=== PATIENT | male | born 1950 | race Caucasian/White ===

== ENCOUNTER 2019-03-16 14:04 | Outpatient (REF) | payer MEDICARE, BC, SELFPAY ==
[2019-03-16 21:10] LABS: ALT 29 U/L (12-78); AST 27 U/L (15-37); Albumin 3.7 g/dL (3.4-5.0); Alkaline Phosphatase 47 U/L (46-116); Anion Gap 7.9 mmol/L (3-11); BUN 19 mg/dL (7-18); Bilirubin, Total 1.3 mg/dL (0.2-1.0); CO2 30.1 mmol/L (21.0-32.0); CREATININE 0.97 mg/dL (0.70-1.30); Calcium 9.3 mg/dL (8.5-10.1); Chloride 104 mmol/L (98-107); Glucose 99 mg/dL (70-100); Potassium 4.1 mmol/L (3.5-5.1); Sodium 142 mmol/L (136-145); Total Protein 6.8 g/dL (6.4-8.2)
== END 2019-03-16 14:24 ==
LOC: NCHCN 14:04
PROVIDERS: PCP Internal Medicine; Visit Provider Nurse Practitioner Family
DX: F52.21 Male erectile disorder (principal); I86.8 Varicose veins of other specified sites; F17.210 Nicotine dependence, cigarettes, uncomplicated; E78.5 Hyperlipidemia, unspecified; R03.0 Elevated blood-pressure reading, without diagnosis of hypertension
CPT/HCPCS: 80053

== ENCOUNTER 2019-04-19 10:30 | Outpatient (REF) | payer MEDICARE, BC, SELFPAY | END 2019-04-19 10:50 | LOC: NCHCN 10:30 | PROVIDERS: PCP Internal Medicine; Visit Provider Nurse Practitioner Family | DX: R73.09 Other abnormal glucose (principal) | CPT/HCPCS: 83036 ==

== ENCOUNTER → 2019-05-24 09:22 | Outpatient (BNVA) | payer MEDICARE, BC, SELFPAY | PROVIDERS: PCP Nurse Practitioner Family; Referring Provider Nurse Practitioner Family; Visit Provider Physical Therapy Assistant | DX: Z12.11 Encounter for screening for malignant neoplasm of colon (principal); Z86.010 Personal history of colon polyps ==

== ENCOUNTER 2019-06-11 09:14 | Day surgery (SDC) | payer MEDICARE, BC, SELFPAY ==
--- NOTE | 2019-06-11 06:45 | W.COLOREPORT ---
Date of service: 06/11/19 Time of Service: : Colonoscopy Report Date of procedure: 06/11/19 Pre-op diagnosis general: Hx of polyps Post-op diagnosis procedure note: other (polyps and internal hemorrhoids) Procedure: Colonoscopy with polypectomy Surgeon: Oksana Thomas Anesthesia proc note operative: other (General/ ASA 2/Namrata Reddy CRNA) Estimated blood loss (mL): 5 Pathology: other (Ascending polyp x2, Transverse polyp, descending colon polyp) Complications: None Disposition: same day Indications: Mr. Akhtar is a pleasant 69 year old male seen in the office for a colonoscopy. His last colonoscopy was in 2008 and was remarkable for a sessile serrated adenoma. He was supposed to come back in 3 years. Risks, benefits and complications have been reviewed. Complications include but are not limited to bleeding, pain, perforation, missed small lesion/polyp, sore throat, aspiration and adverse reaction to the medications. Questions were entertained and answered to their satisfaction and they wished to proceed. No guarantees were given or implied. Prep: Miralax/Dulcolax Procedure Start Time: :28 Procedure End Time: 11:05 Retraction Time: 22 minutes Findings: multiple small polyps Procedure Description: After informed consent was obtained the patient was taken to the procedure room and placed in a left decubitous position. Monitors were applied and a time out was done. The patients name, date of , procedure, allergies to medications and metal in their body was reviewed. The patient was then sedated. Once sedated and comfortable a rectal exam was done. External exam was normal. Internal exam revealed a normal sphincter tone and no palpable masses. The prostate felt smooth. The scope was then introduced and retro-flexed. Grade 1 internal hemorrhoids were identified. There were no masses or polyps on retro-flexion. The scope was then advanced to the cecum with some difficulty. The TI and appendiceal orifice were identified. The prep was adequate. The scope was then slowly retracted over 22 minutes back into the rectum. Polyps were removed with cold forceps in the ascending colon x2, Transverse colon and descending colon. The scope was removed and the patient was woken up and taken back to Same day surgery in stable condition. The patient tolerated the procedure well and there were no immediate complications. Follow up: The patient should follow up in 3-5 years unless they develop changes in bowel habits or other new gastrointestinal complaints.
--- NOTE | 2019-06-11 06:47 | W.PM.DSUDISC ---
Discharge Plan Disposition Patient Disposition: HOME Condition: Good Discharge Details Reason For Visit: Colonoscopy Attending Provider: Oksana Thomas Primary Care Provider: Maura Julio Home Meds and New Rx's Prescriptions: Continued cod liver oil Oil 5 ml PO DAILY RF: 0 aspirin [Adult Low Dose Aspirin] 81 mg tablet,delayed release (DR/EC) 81 mg PO DAILY RF: 0 atorvastatin 20 mg tablet 20 mg PO DAILY RF: 0 multivitamin,tx-minerals Tablet 1 tab PO DAILY RF: 0 garlic 1,000 mg capsule 1,000 mg PO QPC RF: 0 Discontinued polyethylene glycol 3350 17 gram/dose powder 238 g PO ONCE Qty: 238 RF: 0 bisacodyl [Dulcolax (bisacodyl)] 5 mg tablet,delayed release (DR/EC) 5 mg PO ONCE Qty: 4 RF: 0 Discharge Instructions Instructions: Colonoscopy (DC), Colorectal Polyps (DC) Additional Instructions: Findings: colorectal polyps Small internal hemorrhoids Follow up: 3-5 years Please call if you develop: fevers >101.5 Nausea or Vomiting Abdominal pain that is not transient DAY SURGERY UNIT POST ENDOSCOPY INSTRUCTIONS 1. Because there will be medication in your system for the next 24 hours, you may feel a little sleepy. Your coordination will be affected. Therefore: a. Do not drive or operate dangerous equipment for 24 hours. b. Do not drink alcohol beverages for 24 hours (not even beer). c. Plan to go home and rest for the day. 2. Generally there are no restrictions on your activity after a day or so has gone by, but you may feel a bit fatigued for a few days. 3 After you arrive home you may have a light meal and return to a normal diet as you can tolerate it without feeling sick to your stomach. 4. After surgery, you may feel pain or discomfort. This should be only transient, but if it persists please contact your doctor. 5. If there are any questions regarding the findings of your procedure, please feel free to contact your doctor. 6. If you are unable to contact your doctor with a problem, contact the hospital at [phone]. 7. Continue all your regular medications unless directed otherwise. I understand the above instructions and have no questions. Signature of Patient or Responsible Adult Escort Date/Time Name of Responsible Adult Escort Signature of Nurse Date/Time Activity:: Activity as Tolerated Diet:: As Tolerated Discharge Orders Discharge Orders: Discharge Order (Routine); Ordered 06/11/19 Ordered By: Oksana Thomas DS: Diagnosis Discharge Diagnosis (1) History of colonoscopy: Status: Chronic (2) Colorectal polyp detected on colonoscopy: Status: Acute
[2019-06-11 09:23] VITALS: BP 145/92; PULSE 69; RESP 16; TEMP 36.5; O2SAT 98
[2019-06-11] MEDS: Lactated Ringers 1,000 ML 80 ML IV (09:54)
--- NOTE | 2019-06-11 10:44 | BOWEL_PTH ---
PATIENT: Imer Akhtar LOC: [facility] U#:[id number] AGE/SX: 69/M ROOM: RE06/11/[address]: Oksana Thomas MD : 1950 BED: DIS: 06/11/2019 SPEC #: [id number] RECD: 06/11/19 12:56 STATUS: JESSICA REQ #: [id number] DOMONIQUE: 06/11/19 10:[address]: Oksana Thomas DEPT: Surgical Specimen RECD BY: Shabnam Drake ENTERED: 06/11/19 12:58 SP TYPE: Bowel OTHR DR: Maura Julio Tissues: 1 - BIOPSY BOWEL 2 - BIOPSY BOWEL 3 - BIOPSY BOWEL Procedures: GROSS AND MICRO LEVEL 4 Comments: [id number]
[2019-06-11 11:32] VITALS: BP 128/89; PULSE 69; RESP 16; TEMP 36.4; O2SAT 100
== END 2019-06-11 11:55 | disposition home or self-care (01) ==
LOC: SUR 09:15
PROVIDERS: PCP Nurse Practitioner Family; Visit Provider Surgery
PROC: 0DJD8ZZ Inspection of Lower Intestinal Tract, Via Natural or Artificial Opening Endoscopic (ICD-10-PCS; CPT 45378; principal; 2019-06-11 10:30)
DX: Z12.11 Encounter for screening for malignant neoplasm of colon (principal); D12.2 Benign neoplasm of ascending colon; D12.4 Benign neoplasm of descending colon; K63.5 Polyp of colon; K64.0 First degree hemorrhoids; Z86.010 Personal history of colon polyps
CPT/HCPCS: 45380; 88305

== ENCOUNTER 2020-01-24 16:41 | Outpatient (REF) | payer MEDICARE, BC, SELFPAY ==
[2020-01-24 20:30] LABS: ALT 33 U/L (16-63); AST 34 U/L (15-37); Albumin 3.6 g/dL (3.4-5.0); Alkaline Phosphatase 49 U/L (46-116); Anion Gap 4.6 mmol/L (3-11); BUN 20 mg/dL (7-18); Bilirubin, Total 0.9 mg/dL (0.2-1.0); CO2 30.4 mmol/L (21.0-32.0); CREATININE 0.95 mg/dL (0.70-1.30); Calcium 8.8 mg/dL (8.5-10.1); Chloride 105 mmol/L (98-107); Glucose 109 mg/dL (74-106); Sodium 140 mmol/L (136-145); Total Protein 6.5 g/dL (6.4-8.2)
[2020-01-24 20:33] LABS: Hemoglobin A1C 5.8 % (3.8-5.6)
[2020-01-26 11:02] LABS: HIV-1/2 Ag & Ab Screen Negative (Negative)
[2020-01-28 10:58] LABS: Hepatitis C Ab w Rflx HCV PCR Negative (Negative)
[2020-01-28 11:06] LABS: PSA, Screening 1.1 ng/mL (0.0-4.5)
== END 2020-01-24 17:01 ==
LOC: NCHCN 16:41
PROVIDERS: PCP Nurse Practitioner Family; Visit Provider Nurse Practitioner Family
DX: E78.5 Hyperlipidemia, unspecified (principal); R73.09 Other abnormal glucose; F52.21 Male erectile disorder; I86.8 Varicose veins of other specified sites; I10 Essential (primary) hypertension; J30.2 Other seasonal allergic rhinitis; Z12.5 Encounter for screening for malignant neoplasm of prostate; Z11.4 Encounter for screening for human immunodeficiency virus [HIV]; Z11.59 Encounter for screening for other viral diseases
CPT/HCPCS: 80053; 84153; 86803; 87389; 83036

== ENCOUNTER 2020-11-13 01:10 | Outpatient (REF) | payer MEDICARE, SELFPAY ==
[2020-11-13 13:43] LABS: ALT 28 U/L (16-63); AST 28 U/L (15-37); Albumin 3.5 g/dL (3.4-5.0); Alkaline Phosphatase 50 U/L (46-116); Anion Gap 5.4 mmol/L (3-11); BUN 19 mg/dL (7-18); CO2 31.6 mmol/L (21.0-32.0); CREATININE 0.8 mg/dL (0.70-1.30); Calcium 9.2 mg/dL (8.5-10.1); Chloride 108 mmol/L (98-107); Glucose 92 mg/dL (74-106); Potassium 4.5 mmol/L (3.5-5.1); Sodium 145 mmol/L (136-145); Total Protein 6.8 g/dL (6.4-8.2)
== END 2020-11-13 01:11 | disposition home or self-care (01) ==
LOC: NCHCN 01:10
PROVIDERS: PCP Nurse Practitioner Family; Visit Provider Nurse Practitioner Family
DX: E78.5 Hyperlipidemia, unspecified (principal); R73.03 Prediabetes; F17.210 Nicotine dependence, cigarettes, uncomplicated
CPT/HCPCS: 80053

== ENCOUNTER 2021-08-03 13:49 | Outpatient (CLI) | payer MEDICARE, SELFPAY ==
--- NOTE | 2021-08-03 13:45 | DI.RAD_ITS ---
Exam(s) XR HAND LT COMPLETE EXAM: XR HAND LT COMPLETE CLINICAL HISTORY: pain in hand, mainly thumb. TECHNIQUE: 2D digital imaging was performed of the left hand. Three views were obtained. AP, later al and oblique views were obtained. COMPARISON: No exams were available for comparison FINDINGS: BONES: No acute fracture is present. No bony destructive lesion is seen. JOINTS: No dislocation present. There are mild degenerative changes seen in the hand with joint space narrowing and periarticular spurring particularly in the interphalangeal joints. SOFT TISSUE: Normal. IMPRESSION: Mild degenerative changes of the left hand. DATA REPOSITORY: RADIATION DOSE DELIVERED:
== END 2021-08-03 13:50 | disposition home or self-care (01) ==
LOC: DIORS 13:49
PROVIDERS: PCP Nurse Practitioner Family; Referring Provider Nurse Practitioner Family; Visit Provider Student in an Organized Health Care Education/Training Program
DX: M79.642 Pain in left hand (principal); M18.32 Unilateral post-traumatic osteoarthritis of first carpometacarpal joint, left hand; S63.112A Subluxation of metacarpophalangeal joint of left thumb, initial encounter; X58.XXXA Exposure to other specified factors, initial encounter
CPT/HCPCS: 99214; 73130

== ENCOUNTER 2021-12-07 11:19 | Outpatient (REF) | payer MEDICARE, SELFPAY ==
[2021-12-07 16:22] LABS: ALT 35 U/L (16-63); AST 30 U/L (15-37); Albumin 3.5 g/dL (3.4-5.0); Alkaline Phosphatase 49 U/L (46-116); Anion Gap 5.1 mmol/L (3-11); BUN 20 mg/dL (7-18); CO2 29.9 mmol/L (21.0-32.0); CREATININE 1.1 mg/dL (0.70-1.30); Calcium 8.7 mg/dL (8.5-10.1); Chloride 107 mmol/L (98-107); Glucose 104 mg/dL (74-106); Potassium 4.6 mmol/L (3.5-5.1); Sodium 142 mmol/L (136-145); TSH (W/Ref FT4) 2.61 uIU/mL (0.36-3.74); Total Protein 6.6 g/dL (6.4-8.2)
[2021-12-07 16:24] LABS: Hemoglobin A1C 5.9 % (<5.7)
[2021-12-07 22:08] LABS: PSA, Screening 1.6 ng/mL (<=4.5)
== END 2021-12-07 11:20 | disposition home or self-care (01) ==
LOC: NCHCN 11:19
PROVIDERS: PCP Nurse Practitioner Family; Visit Provider Nurse Practitioner Family
DX: I10 Essential (primary) hypertension (principal); R73.03 Prediabetes; E78.5 Hyperlipidemia, unspecified; Z12.5 Encounter for screening for malignant neoplasm of prostate
CPT/HCPCS: 80053; 84153; 83036; 84443

== ENCOUNTER 2022-05-31 17:08 | Outpatient (REF) | payer MEDICARE, SELFPAY ==
--- NOTE | 2022-05-31 15:15 | SKI_PTH ---
PATIENT: Imer Akhtar LOC: [facility]#:[id number] AGE/SX: 72/M ROOM: RE05/31/[address]: Avelino Hernandez : 1950 BED: DIS: 05/31/2022 SPEC #: [id number] RECD: 05/31/22 18:01 STATUS: JESSICA REQ #: [id number] DOMONIQUE: 05/31/22 15:[address]: Avelino Hernandez DEPT: Surgical Specimen RECD BY: Shabnam Drake ENTERED: 05/31/22 18:01 SP TYPE: SKI OTHR DR: Maura Julio Tissues: 1 - SKIN BIOPSY(SHAVE/PUNCH) Procedures: IMMUNOPEROXIDASE STAIN SKIN LEVEL 4 Comments: [id number]
== END 2022-05-31 17:09 | disposition home or self-care (01) ==
LOC: NCHCN 17:08
PROVIDERS: PCP Nurse Practitioner Family; Visit Provider Family Medicine
DX: C43.62 Malignant melanoma of left upper limb, including shoulder (principal)
CPT/HCPCS: 88305; 88361

== ENCOUNTER → 2022-06-10 10:00 | Outpatient (BNVA) | payer MEDICARE, SELFPAY | PROVIDERS: PCP Nurse Practitioner Family; Referring Provider Nurse Practitioner Family; Visit Provider Nurse Practitioner Adult Health | DX: R41.3 Other amnesia (principal); R47.89 Other speech disturbances; I10 Essential (primary) hypertension | CPT/HCPCS: 99204; 99214 ==

== ENCOUNTER 2022-06-22 14:48 | Outpatient (REF) | payer MEDICARE, SELFPAY ==
--- NOTE | 2022-06-22 11:30 | SKI_PTH ---
PATIENT: Imer Akhtar LOC: [facility]#:[id number] AGE/SX: 72/M ROOM: RE06/22/[address]: Avelino Hernandez : 1950 BED: DIS: 06/22/2022 SPEC #: [id number] RECD: 06/22/22 17:09 STATUS: JESSICA REQ #: [id number] DOMONIQUE: 06/22/22 11:[address]: Avelino Hernandez DEPT: Surgical Specimen RECD BY: Shabnam Drake ENTERED: 06/22/22 17:09 SP TYPE: SARAHI CHOWDARY DR: Maura Julio Tissues: 1 - SKIN BIOPSY(SHAVE/PUNCH) Procedures: IMMUNOPEROXIDASE STAIN SKIN LEVEL 4 Comments: [id number]
[2022-06-22 16:29] LABS: Vitamin B12 803 pg/mL (193-986)
== END 2022-06-22 14:49 | disposition home or self-care (01) ==
LOC: NCHCN 14:48
PROVIDERS: PCP Nurse Practitioner Family; Visit Provider Family Medicine
DX: C43.62 Malignant melanoma of left upper limb, including shoulder (principal); R41.3 Other amnesia
CPT/HCPCS: 82607; 88305; 88361

== ENCOUNTER → 2022-07-02 00:35 | Outpatient (CLI) | payer MEDICARE, SELFPAY ==
--- NOTE | 2022-07-02 07:15 | DI.MRI_ITS ---
Exam(s) MR BRAIN WO EXAM: MR BRAIN WO CLINICAL HISTORY: word finding difficulties, memory changes,R41.3,R47.89 TECHNIQUE: Multiplanar multisequence MRI of the brain was performed. COMPARISON: No exams were available for comparison FINDINGS: CEREBRAL PARENCHYMA: There is no evidence of intracranial hemorrhage, mass effect, or shift of midline structures. There are no extra-axial fluid collections. Ventricles are not enlarged or shifted. There is no significant focal signal abnormality in the cerebellar hemispheres nor within the daniela, m idbrain, and thalami. There is no abnormal signal abnormality in the periventricular white matter. There is no significant focal signal abnormality evident on diffusion imaging to suggest acute ischem ic event. PITUITARY GLAND: No mass nor parasellar abnormality. No obvious abnormality in the cavernous sinuses. FLOW VOIDS: The expected flow void are noted. No evidence of obvious aneurysm nor obvious vascular ma lformation. PARANASAL SINUSES: There is post inflammatory retention cyst in the in inferior aspect of the left ma xillary sinus which measures 2 x 1.5 x 1.8 cm. No associated fluid level. Mild mucosal thickening n oted in the floor of the opposite-right maxillary sinus. No fluid levels. Remainder of the paranasa l sinuses at are clear as are the mastoid air cells. ORBITS: No obvious findings. IMPRESSION: No significant intracranial findings on this noninfused MRI scan of the brain. Post inflammatory retention cyst in the left maxillary noted. DATA REPOSITORY:
== END ==
PROVIDERS: PCP Nurse Practitioner Family; Visit Provider Nurse Practitioner Adult Health
DX: R41.3 Other amnesia (principal); R47.89 Other speech disturbances; J34.1 Cyst and mucocele of nose and nasal sinus
CPT/HCPCS: 70551

== ENCOUNTER → 2022-07-08 08:30 | Outpatient (BNVA) | payer MEDICARE, SELFPAY | PROVIDERS: PCP Nurse Practitioner Family; Referring Provider Nurse Practitioner Family; Visit Provider Nurse Practitioner Adult Health | DX: G31.84 Mild cognitive impairment of uncertain or unknown etiology (principal); R47.89 Other speech disturbances | CPT/HCPCS: 99213; 99214 ==

== ENCOUNTER → 2022-07-27 13:20 | Outpatient (BNVA) | payer MEDICARE, SELFPAY | PROVIDERS: PCP Nurse Practitioner Family; Referring Provider Nurse Practitioner Family; Visit Provider Surgery | DX: C43.9 Malignant melanoma of skin, unspecified (principal) | CPT/HCPCS: 11602 ==

== ENCOUNTER 2022-07-27 14:28 | Outpatient (REF) | payer MEDICARE, SELFPAY ==
--- NOTE | 2022-07-27 14:10 | SKI_PTH ---
PATIENT: Imer Akhtar LOC: [facility]#:[id number] AGE/SX: 72/M ROOM: RE07/27/[address]: JULIEN Amezcua : 1950 BED: DIS: 07/27/2022 SPEC #: [id number] RECD: 07/27/22 16:57 STATUS: JESSICA REQ #: [id number] DOMONIQUE: 07/27/22 14:[address]: Rosita Weinberg DEPT: Surgical Specimen RECD BY: Shabnam Drake ENTERED: 07/27/22 17:02 SP TYPE: SARAHI CHOWDARY DR: Maura Julio Tissues: 1 - SKIN CYST/TAG/DEBRIDEMENT Procedures: SKIN LEVEL 4 Comments: [id number]
== END 2022-07-27 14:29 | disposition home or self-care (01) ==
LOC: LBN 14:28
PROVIDERS: PCP Nurse Practitioner Family; Visit Provider Physical Therapy Assistant
DX: C43.62 Malignant melanoma of left upper limb, including shoulder (principal)
CPT/HCPCS: 88304; 88305

== ENCOUNTER → 2022-08-10 10:47 | Outpatient (BNVA) | payer MEDICARE, SELFPAY | PROVIDERS: PCP Nurse Practitioner Family; Referring Provider Nurse Practitioner Family; Visit Provider Surgery | DX: C43.9 Malignant melanoma of skin, unspecified ==

== ENCOUNTER 2022-11-08 02:05 | Outpatient (CLI) | payer MEDICARE, SELFPAY ==
--- NOTE | 2022-11-08 | DI.MRI_ITS ---
Exam(s) MR UPPER JOINT RT WO EXAM: MR UPPER JOINT RT WO CLINICAL HISTORY: RT SHOULDER PAIN, M25.511 TECHNIQUE: Multiplanar multisequence MRI of the shoulder was performed. COMPARISON: CT CHEST - LUNG CANCER SCREENING from 09/16/2017 CR XR HAND LT COMPLETE from 08/03/2021 FINDINGS: MARROW:There is no evidence of fracture, Hill-Sachs deformity, nor ominous osseous lesions. There is superior subluxation of the humeral head in the osseous glenoid, with diminution of the subacromial s pace. ROTATOR CUFF MECHANISM: AC JOINT/ACROMIUM: Advanced degenerative changes are noted the acromioclavicular joint. Impingement evident at this level.. There is no evidence of os acromiale. There is fluid evident in the subacromial-subdeltoid bursa. Supraspinatus: There is full-thickness tear with retraction musculotendinous junction to the medial 3 rd of the humeral head. Large bare area. Mild muscle atrophy. Infraspinatus: Full-thickness tear with retraction of the musculotendinous junction to same level sup raspinatus. Teres Minor: Intact. No evidence of tear nor muscle atrophy. Subscapularis/anterior cuff: Signal abnormality consistent with tendinitis and partial tearing of the multipennate insertional fibers anterior to the humeral head-lesser tuberosity. BICEPS TENDON: Torn. Significantly attenuated in the intertubercular groove. Intra-articular aspect attenuated. LABRUM: No labral tear identified. No evidence of paralabral cyst. GLENOHUMERAL JOINT: Moderate degenerative changes. Joint effusion continuity with the subacromial-house bdeltoid space. Small osteophytes. IMPRESSION: 1. There are large full-thickness tears of both the supra and infraspinatus, leaving a large bare are a with continuity of fluid between the glenohumeral joint and subacromial-subdeltoid space. There is superior subluxation of the humeral head in the osseous glenoid 2. There is also partial tearing of the anterior cuff-subscapularis 3. There is tearing of the biceps tendon in and above the intertubercular groove. 4. no obvious labral tears Moderate degenerative changes in the glenohumeral joint DATA REPOSITORY:
== END 2022-11-08 02:25 ==
LOC: DI 02:06
PROVIDERS: PCP Nurse Practitioner Family; Visit Provider Family Medicine
DX: M25.511 Pain in right shoulder (principal); M75.101 Unspecified rotator cuff tear or rupture of right shoulder, not specified as traumatic; S43.001A Unspecified subluxation of right shoulder joint, initial encounter; S46.811A Strain of other muscles, fascia and tendons at shoulder and upper arm level, right arm, initial encounter; X58.XXXA Exposure to other specified factors, initial encounter
CPT/HCPCS: 73221

== ENCOUNTER 2023-11-28 11:05 | Outpatient (REF) | payer MEDICARE, SELFPAY ==
[2023-11-28 15:33] LABS: Hemoglobin A1C 5.9 % (<5.7)
[2023-11-28 15:55] LABS: Bilirubin Negative (Negative); Blood Negative (Negative); Clarity Clear (Clear); Glucose Negative (Negative); Ketones Negative (Negative); Leukocyte Esterase Negative (Negative); Nitrite Negative (Negative); Specific Gravity 1.015 (1.005-1.025); Urobilinogen 0.2 mg/dL (Up to 0.2)
[2023-11-28 16:13] LABS: Anion Gap 9.3 mmol/L (3-11); BUN 18 mg/dL (7-18); CO2 29.7 mmol/L (21.0-32.0); Calcium 9.3 mg/dL (8.5-10.1); Calculated LDL 101 mg/dL (<100); Chloride 107 mmol/L (98-107); Cholesterol 202 mg/dL (<200); Estimated GFR 80.47 (mL/min/1.73m2); Glucose 75 mg/dL (74-106); HDL Cholesterol 88 mg/dL (40-60); Potassium 4.4 mmol/L (3.5-5.1); Sodium 146 mmol/L (136-145); Triglyceride 68 mg/dL (<150)
[2023-11-28 16:20] LABS: COMMENT (LAB VIEW ONLY) 45.77 mg/dL; Microalb ug/mg Crea 10.3 ug/mg Cr
== END 2023-11-28 11:06 | disposition home or self-care (01) ==
LOC: NCHCN 11:05
PROVIDERS: PCP Nurse Practitioner Family; Visit Provider Nurse Practitioner Family
DX: R39.9 Unspecified symptoms and signs involving the genitourinary system (principal); R73.03 Prediabetes; I10 Essential (primary) hypertension
CPT/HCPCS: 80048; 80061; 81003; 82043; 82570; 83036; 84154

== ENCOUNTER → 2023-12-01 13:26 | Outpatient (BNVA) | payer MEDICARE, SELFPAY | PROVIDERS: PCP Nurse Practitioner Family; Referring Provider Nurse Practitioner Family; Visit Provider Nurse Practitioner Adult Health | DX: G31.84 Mild cognitive impairment of uncertain or unknown etiology (principal) | CPT/HCPCS: 99213 ==

== ENCOUNTER → 2024-01-12 10:14 | Outpatient (BNVA) | payer MEDICARE, SELFPAY | PROVIDERS: PCP Nurse Practitioner Family; Referring Provider Nurse Practitioner Family; Visit Provider Physical Therapy Assistant | DX: Z12.11 Encounter for screening for malignant neoplasm of colon (principal); Z86.010 Personal history of colon polyps ==

== ENCOUNTER 2024-01-25 09:59 | Day surgery (SDC) | payer MEDICARE, SELFPAY ==
--- NOTE | 2024-01-24 19:36 | PDOC.DSDIS_ITS ---
Date of service: 01/25/24 Time of Service: 11:11 Discharge Plan Disposition Patient Disposition: Home Condition: Good Discharge Details Reason For Visit: screening colonoscopy Attending Provider: Edin Mchugh Primary Care Provider: Maura Julio Home Meds and New Rx's Prescriptions: Continued sildenafil (pulm.hypertension) 20 mg tablet 20 mg PO DAILY PRN Rx Instructions: administer doses at least 4-6 hours apart turmeric root extract 500 mg capsule 1,000 mg PO DAILY atorvastatin 20 mg tablet 20 mg PO DAILY multivitamin,tx-minerals Tablet 1 tab PO DAILY aspirin [Adult Low Dose Aspirin] 81 mg tablet,delayed release (DR/EC) 81 mg PO .every other day omega-3 fatty acids-fish oil 340-1,000 mg capsule 1 cap PO DAILY Discontinued bisacodyl [Dulcolax (bisacodyl)] 5 mg tablet,delayed release (DR/EC) 5 mg PO ONCE Qty: 4 0RF Rx Instructions: Take per colonoscopy instructions provided by ordering providers office polyethylene glycol 3350 17 gram/dose powder 17 g PO ONCE Qty: 238 0RF Rx Instructions: Take per colonoscopy instructions provided by ordering providers office Discharge Instructions Additional Instructions: Imer, we are able to complete your colonoscopy today without any issues. Your prep was excellent, and I could see everything just fine. I did not see any signs of tumors, polyps, or any other worrisome pathology. Because of the type of polyps that she had removed previously, I do recommend a 5-year interval for your next colonoscopy. If that is negative, we could give reconsideration to extending the periods in between. If you have any questions at all, please do not hesitate to ask at any point. 1. If tolerated, consume a soft, low fiber diet for 1-2 days. 2[address] Do not drive, drink alcohol, operate machinery, make critical decisions, or do activities that require coordination or balance for 24 hours. 3. Because air was put into your colon during the procedure, expelling air from your rectum (passing gas or farting) is normal. 4. You may not have a bowel movement for 1-3 days because of the colonoscopy prep. This is normal. 5. Go directly to the emergency room if you notice any of the following: Develop chills (warm to touch), or if you have a thermometer and your temperature is above 101 Difficulty breathing or difficultly swallowing Persistent vomiting Severe abdominal pain, other than gas cramps Severe chest pain Black, tarry stools Any bleeding ? exceeding one tablespoon 6. Call your physician if the site where your intravenous was started becomes red, swollen, painful, and warm to touch. 7. Your physician has reviewed your pre-procedure medications. Please continue to take those medications as previously ordered. You will be given specific information/education regarding any changes to your medications before leaving. Activity:: Activity as Tolerated Diet:: As Tolerated Discharge Orders Discharge Orders: Discharge Order (Routine); Ordered 01/24/24 Ordered By: Edin Mchugh DS: Diagnosis Discharge Diagnosis (1) Encounter for screening colonoscopy: Status: Acute Asessment and Plan: Negative screening colonoscopy today; based on history of polyps, recommend a 5- year interval follow-up
--- NOTE | 2024-01-24 19:38 | W.COLOREPORT ---
Date of service: 01/25/24 Time of Service: 11:12 Colonoscopy Report Date of procedure: 01/25/24 Pre-op diagnosis general: screening colonoscopy Post-op diagnosis procedure note: other (Negative screening colonoscopy) Procedure: colonoscopy Surgeon: Edin Mchugh Anesthesia Type: General:No Airway Estimated blood loss (mL): 0 Pathology: none sent Complications: None Disposition: same day Indications: Imer is a 73 year old man with a hitory of sdenomatous polyps who needs his next screening colonoscopy Prep: Miralax/Dulcolax Procedure Start Time: 10:49 Procedure End Time: 11:07 Retraction Time: 7 Findings: Negative screening colonoscopy Procedure Description: After the induction of monitored anesthetic care, and with the patient in left lateral decubitus position, I began by performing an external anorectal exam.? Perineum and skin were normal, as was the anal verge.? There was no evidence of external hemorrhoids.? Next, I performed a digital rectal exam.? I did not appreciate any abnormal findings.? Next, I advanced a colonoscope into the rectal vault.? I performed retroflexion.? This appeared normal.? Using insufflation, I then advanced the colonoscope beyond the rectal folds and into the sigmoid colon before advancing towards the cecum.? The quality of the prep was outstanding.? The scope was noted to be in the cecum by identification of the ileocecal valve and appendiceal orifice.? I then began withdrawing the colonoscope using repeated irrigation as necessary for full evaluation of the colonic mucosa. ?Once the scope was withdrawn to the level of the rectum, great care was taken to examine portions of the rectal folds.? Finally, the scope was withdrawn and the patient was brought to the same-day surgery recovery unit as the anesthetic wore off. I did not see any signs of tumors, polyps, or any other worrisome pathology. ?The findings and instructions were shared with the patient prior to discharge. [place] Bowel Prep [place] Bowel Prep Right Colon: 3 Left Colon: 3 Transverse Colon: 3 Total Score: 9
--- NOTE | 2024-01-25 06:26 | W.ANESPRE ---
General Info Date of Service Date Performed: 01/25/24 Height: 5 ft 9 in Weight: 82.1 kg Body Mass Index (BMI): 26.7 Surgical Procedure: Operation Date: 01/25/24 10:50 Proposed Procedure Side Surgeon p Dania Mchugh MD Meds Allergies and Home Medications Allergies Allergy/AdvReac Type Severity Reaction Status Date / Time benzalkonium chloride Allergy Mild Other (See Uncoded 01/25/24 10:07 Comment) Home Medication Medication Instructions Recorded atorvastatin 20 mg tablet 20 mg PO DAILY 03/27/19 multivitamin,tx-minerals 1 tab PO DAILY 03/27/19 sildenafil (pulm.hypertension) 20 20 mg PO DAILY PRN 07/28/21 mg tablet turmeric root extract 500 mg 1,000 mg PO DAILY 08/03/21 capsule omega-3 fatty acids-fish oil 340 1 cap PO DAILY 07/12/22 mg-1,000 mg capsule aspirin 81 mg tablet,delayed 81 mg PO .every other day 07/27/22 release (Adult Low Dose Aspirin) Current Visit Medications: Current Medications Generic Name Dose Route Start Last Admin Trade Name Freq PRN Reason Stop Dose Admin Hyoscyamine Sulfate 0.125 mg 01/24/24 19:39 Hyoscyamine 0.125 Mg Sl/Oral/Chew SL 02/23/24 19:38 DIRECTED PRN Ringer's Solution 1,000 mls @ 80 mls/hr 01/25/24 06:00 IV 01/25/24 23:59 INFUSION [facility] IV Miscellaneous Supplies 1 each 01/25/24 06:00 Iv Access IV 01/25/24 23:59 DIRECTED ANN Ondansetron HCl 4 mg 01/24/24 19:39 Ondansetron 4 Mg/2 Ml Vial IVP 02/23/24 19:38 Q4H PRN PRN Nausea / Vomiting Sodium Chloride 0 ml 01/25/24 06:00 Normal Saline Flush 10 Ml Syr IV 01/25/24 23:59 PRN PRN Sodium Chloride 0 ml 01/25/24 06:00 Normal Saline 10 Ml Vial IJ 01/25/24 23:59 DIRECTED PRN Sterile Water 0 ml 01/25/24 06:00 Water,Injection,Sterile 10 Ml Vial IJ 01/25/24 23:59 DIRECTED PRN PFSH Active Problems Active Problems: Problem Status Onset Code Encounter for screening colonoscopy Z12.11 Prediabetes R73.03 Melanoma C43.9 Mild cognitive impairment G31.84 Word finding difficulty R47.89 Memory deficit R41.3 Rupture of radial collateral ligament of left thumb S63.642A Colorectal polyp detected on colonoscopy K63.5 History of colonoscopy ~06/11/19 Z98.890 Skin nodule R22.9 Tobacco abuse Z72.0 Bilateral hearing loss H91.93 Hyperlipidemia E78.5 Elevated blood pressure reading R03.0 Erectile dysfunction N52.9 Medical History Medical History History of prediabetes Hypertension Seasonal allergies Pain of left thumb Paresthesia Plantar wart, right foot Seborrheic keratosis Lower urinary tract symptoms Sinus congestion Sciatica of left side Skin lesion Right shoulder pain Memory impairment Surgical History Surgical History History of hernia repair Tobacco Smoking/Tobacco Use Status: Current-Occasional Tobacco Type: pipe Alcohol Alcohol Intake: current Alcohol intake frequency: 0-2 drinks per day Substance Use Substance use: Occasionally Substance use type: marijuana Vital Signs and Lab Results Vital Signs Most Recent Vital Signs in EMR: Temp Pulse Resp BP Pulse Ox 36.5 C 83 16 161/84 H 98 01/25/24 10:09 01/25/24 10:09 01/25/24 10:09 01/25/24 10:09 01/25/24 10:09 Lab Results Blood Type / Crossmatch: No Data to Display Complete Blood Count: No Data to Display Complete Metabolic Panel: No Data to Display Liver Function Panel: No Data to Display Coagulation Panel: No Data to Display Cardiac Panel: No Data to Display Arterial Blood Gas: No Data to Display Venous Blood Gas: No Data to Display Pancreas Panel: No Data to Display Thyroid Panel: No Data to Display Infectious Disease: No Data to Display Blood Cultures: No Data to Display Toxicology Panel: No Data to Display Anesthesia Assessment and Plan Anesthesia History Personal History: No History of Anesthesia Complications Family History: No Family History of Anesthesia Complications Exercise Tolerance Exercise Tolerance: Metabolic Equivalents>4 Cardiac & Pulmonary Exam Cardiac Exam: Normal S1/S2 Heart Sounds Pulmonary Exam: Clear Bilateral Breath Sounds Implantable Cardiac Device Does patient have a Pacemaker or an ICD?: No Airway Exam Known Difficult Airway: No Mallampati Class: 2 Mouth Opening: Normal (> 3cm) Thyromental Distance: Greater than 3 cm Neck Range of Motion: Full ROM Neck Circumference: Normal Teeth Condition: Normal Dentition ASA Classification ASA Score: ASA 2 Emergency Case?: No NPO Status NPO Status: NPO Clears >2 hours, Solids >8 hours Anesthesia Plan Resuscitation Status: Full Code Anesthesia Technique: General Anesthesia Airway Planned: Natural Airway Monitors Used: Standard Monitors Preoperative Comments:: 73 yo male for colo. Sig PMHx: HTN, preDM, smoker, cognitive impairment. Previous Anes: - colo, prop, natural airway. no issues.
[2024-01-25 10:09] VITALS: BP 161/84; PULSE 83; RESP 16; TEMP 36.5; O2SAT 98
[2024-01-25 10:19] VITALS: BMI 26.7
[2024-01-25] MEDS: Lactated Ringers 1,000 ML 80 ML IV (10:19)
[2024-01-25 11:10] VITALS: BP 116/79; PULSE 76; RESP 16; TEMP 36; O2SAT 97
--- NOTE | 2024-01-25 11:37 | W.ANESPOSTOP ---
Postoperative Evaluation Date, Time and Location Date Performed: 01/25/24 Time Performed: 11:41 Patient Location: Day Surgery Unit Vital Signs Most Recent Imported Vital Signs: Most Recent Vital Signs Temp Pulse Resp BP Pulse Ox 36 C L 76 16 116/79 97 01/25/24 11:10 01/25/24 11:10 01/25/24 11:10 01/25/24 11:10 01/25/24 11:10 Pain Score Most Recent Pain Score: Most Recent Pain Score Pain Level 0 01/25/24 11:10 Assessment Mental Status: Awake (Alert & Oriented to Patient Baseline) Airway and Respiratory Function: Patent airway with normal (patient baseline) respiratory exam Cardiovascular Function: Hemodynamically Stable Hydration Status: Adequately Hydrated Nausea & Vomiting: No Nausea or Vomiting Pain: Pt. Denies Any Pain Peripheral Nerve Block: Patient did not receive a nerve block
[2024-01-25 11:40] VITALS: BP 139/80; PULSE 73; RESP 16; TEMP 36.2; O2SAT 99
== END 2024-01-25 11:53 | disposition home or self-care (01) ==
LOC: SUR 09:59
PROVIDERS: PCP Nurse Practitioner Family; Visit Provider Surgery
PROC: 0DJD8ZZ Inspection of Lower Intestinal Tract, Via Natural or Artificial Opening Endoscopic (ICD-10-PCS; CPT 45378; principal; 2024-01-25 10:45)
DX: Z12.11 Encounter for screening for malignant neoplasm of colon (principal); R73.03 Prediabetes; I10 Essential (primary) hypertension; F17.210 Nicotine dependence, cigarettes, uncomplicated; Z86.010 Personal history of colon polyps
CPT/HCPCS: G0105; J2001; J2704

== ENCOUNTER 2024-11-08 11:01 | Outpatient (REF) | payer MEDICARE, SELFPAY ==
[2024-11-08 15:00] LABS: Hemoglobin A1C 5.8 % (<5.7)
[2024-11-08 15:01] LABS: Bilirubin Negative (Negative); Blood Negative (Negative); Clarity Clear (Clear); Glucose Negative (Negative); Ketones Negative (Negative); Leukocyte Esterase Negative (Negative); Nitrite Negative (Negative); Urobilinogen 0.2 mg/dL (Up to 0.2)
[2024-11-08 15:14] LABS: COMMENT (LAB VIEW ONLY) 59.56 mg/dL; Microalb ug/mg Crea 9.2 ug/mg Cr
[2024-11-08 23:03] LABS: PSA, Diagnostic 1.3 ng/mL (<=6.5)
== END 2024-11-08 11:02 | disposition home or self-care (01) ==
LOC: NCHCN 11:01
PROVIDERS: PCP Nurse Practitioner Family; Visit Provider Nurse Practitioner Family
DX: R73.03 Prediabetes (principal); R39.9 Unspecified symptoms and signs involving the genitourinary system; I10 Essential (primary) hypertension
CPT/HCPCS: 81003; 82043; 82570; 83036; 84153